=== PATIENT | male | born 1960 | race Caucasian/White ===

== ENCOUNTER → 2021-09-16 | Day surgery (SDC) | payer OTHER ==
[~2021-09-16] MED LIST: Propofol 200 MG/20 ML SDV ONE
[2021-09-16] MEDS: Lactated Ringers 1,000 ML IV SCH (09:27)
== END ==
LOC: CC.SDS 09:06
PROVIDERS: ATTEND Family Medicine
DX: Z12.11 Encounter for screening for malignant neoplasm of colon (principal); D12.2 Benign neoplasm of ascending colon; N40.0 Benign prostatic hyperplasia without lower urinary tract symptoms; N52.9 Male erectile dysfunction, unspecified; G47.30 Sleep apnea, unspecified; N48.6 Induration penis plastica; M23.209 Derangement of unspecified meniscus due to old tear or injury, unspecified knee; Z98.890 Other specified postprocedural states; Z87.891 Personal history of nicotine dependence
CPT/HCPCS: J2704; J7120

== ENCOUNTER 2024-11-10 01:10 | Emergency (ER) | payer OTHER ==
[2024-11-10] MEDS ORDERED: Sodium Chloride 0.9% 10 ML Syringe FLUSH PRN (01:12)
[2024-11-10 01:28] LABS: BASOPHILS ABSOLUTE AUTO 0.03 10^3/uL (0.00-0.50); BASOPHILS PERCENT AUTO 0.2 % (0-1); EOSINOPHILS ABSOLUTE AUTO 0.10 10^3/uL (0.00-1.50); EOSINOPHILS PERCENT AUTO 0.7 % (0-6); IMMATURE GRAN ABSOLUTE AUTO 0.03 10^3/uL (0.00-0.49); IMMATURE GRAN PERCENT AUTO 0.2 % (0.0-4.9); LYMPHOCYTES ABSOLUTE AUTO 1.57 10^3/uL (0.60-5.00); LYMPHOCYTES PERCENT AUTO 11.5 % (24-44); MONOCYTES ABSOLUTE AUTO 0.97 10^3/uL (0.00-1.50); MONOCYTES PERCENT AUTO 7.1 % (0-10); NEUTROPHILS ABSOLUTE AUTO 10.95 x10^3/uL (1.80-8.00); NEUTROPHILS PERCENT AUTO 80.3 % (41-71); PLATELET COUNT,PLT 208 10^3/uL (150-400); RED BLOOD CELL COUNT 5.45 x10^6/uL (4.50-6.00); WHITE BLOOD CELL COUNT,WBC 13.7 10^3/uL (4.0-11.0)
[2024-11-10] MEDS: Ondansetron 4 MG Tab.DIS PO ONE (01:30)
[2024-11-10 01:38] LABS: APPEARANCE,URINE CLEAR (CLEAR); GLUCOSE,URINE NEGATIVE (NEGATIVE); OCCULT BLOOD,URINE LARGE (NEGATIVE)
[2024-11-10 01:43] LABS: LACTIC ACID 1.3 mmol/L (0.4-2.0)
[2024-11-10 01:46] LABS: EPITHELIAL CELLS,URINE NOT SEEN /HPF (NOT SEEN)
[2024-11-10 01:48] LABS: INR 1.0 (0.92-1.18); PTT,PARTIAL THROMBOPLSTIN TIME 26.5 SEC (20.0-30.0)
[2024-11-10] MEDS: Ketorolac 30 MG/ML SDV IVPUSH ONE (01:51)
[2024-11-10 01:54] LABS: ALANINE AMINOTRANSFERASE,ALT 26 U/L (12-78); ASPARTATE AMNIOTRANSFERASE,AST 24 U/L (15-37); BILIRUBIN TOTAL 0.3 mg/dL (0.0-1.0); BLOOD UREA NITROGEN,BUN 24 mg/dL (7-18); CARBON DIOXIDE,CO2 30 mmol/L (21-32); CHLORIDE,CL 102 mEq/L (98-106); CREATININE 1.3 mg/dL (0.7-1.3); EST CRCL DRUG DOSING (CG) 62.18 mL/min; GLUCOSE RANDOM 131 mg/dL (75-99); POTASSIUM,K 3.9 mEq/L (3.5-5.0); PROTEIN TOTAL,TP 7.4 g/dL (6.4-8.2); SODIUM,NA 140 mEq/L (136-145)
[2024-11-10 01:55] LABS: ESTIMATED GFR 61 mL/min (>=60)
[2024-11-10] MEDS: diphenhydrAMINE 50 MG/ML SDV IVPUSH ONE (02:32)
[2024-11-10] MEDS: Iopamidol 755 Mg/ML 100 ML Bottle IVPUSH ONE (02:37)
== END 2024-11-10 04:50 | disposition home or self-care (01) ==
LOC: CC.ED 01:10
DX: N13.2 Hydronephrosis with renal and ureteral calculous obstruction (principal)
CPT/HCPCS: 36415; 74178; 80053; 81001; 83605; 85025; 85610; 85730; 86140; 96374; 96375; 99284; 99284-25; A9270-GY; J1200; J1885; Q9967